=== PATIENT | female | born 1960 | race Caucasian/White ===

== ENCOUNTER 2017-10-07 17:11 | Emergency (ER) | payer MEDICARE, BC ==
[~2017-10-07] VITALS: Ht 157.5 cm; Wt 95.3 kg
[~2017-10-07 17:11] MED LIST: BENZTROPINE MES1 MG PO; COLESTID1 GM PO; FENOFIBRATE160 MG PO; FLUPHENAZINE25 MG/ML IM; HALOPERIDOL 5 MG5 MG PO; HYDROCODONE-APA1 TA1 PO; LEVOTHYROXIN0.075 MG PO; LISINOPRIL-HCT1 EAC2 PO; METFORMIN HCL500 MG PO; NAPROSYN500 MG PO; SIMVASTATIN40 MG PO; TESSALON PERLE100 MG PO; WELCHOL 625 MG625 M1 PO
[2017-10-07] MEDS ORDERED: ASPIRIN325 PO (17:26)
[2017-10-07] MEDS ORDERED: SEROQUEL 50 MG50 MG PO (17:26)
[2017-10-07 17:40] VITALS: BP 116/41
== END 2017-10-07 17:41 | disposition home or self-care (01) ==
LOC: M.ERS 17:11
DX: S61.012A Laceration without foreign body of left thumb without damage to nail, initial encounter (principal); E78.5 Hyperlipidemia, unspecified; I50.9 Heart failure, unspecified; G47.30 Sleep apnea, unspecified; F20.9 Schizophrenia, unspecified; F31.9 Bipolar disorder, unspecified; E66.01 Morbid (severe) obesity due to excess calories; Z68.38 Body mass index [BMI] 38.0-38.9, adult; Z90.49 Acquired absence of other specified parts of digestive tract; Z88.0 Allergy status to penicillin; W26.0XXA Contact with knife, initial encounter; Y93.89 Activity, other specified; Y92.89 Other specified places as the place of occurrence of the external cause; Y99.8 Other external cause status

== ENCOUNTER 2018-11-12 04:38 | Emergency (ER) | payer MEDICARE, BC ==
[~2018-11-12] VITALS: Ht 157.5 cm; Wt 124.8 kg
[~2018-11-12 04:38] MED LIST changes: +ASPIRIN325 PO; +SEROQUEL 50 MG50 MG PO
[2018-11-12] MEDS ORDERED: INVEGA (04:48)
[2018-11-12] MEDS ORDERED: VENTOLIN HFA 1818 GM INH (05:42)
[2018-11-12] MEDS ORDERED: ZPAK PO (05:42)
[2018-11-12 05:52] VITALS: BP 129/66
== END 2018-11-12 05:52 | disposition home or self-care (01) ==
LOC: M.ERS 04:38
DX: J18.9 Pneumonia, unspecified organism (principal); F20.9 Schizophrenia, unspecified; I50.9 Heart failure, unspecified; G47.30 Sleep apnea, unspecified; E66.01 Morbid (severe) obesity due to excess calories; E03.9 Hypothyroidism, unspecified; F32.9 Major depressive disorder, single episode, unspecified; E78.5 Hyperlipidemia, unspecified; Z88.0 Allergy status to penicillin; Z90.49 Acquired absence of other specified parts of digestive tract; Z68.43 Body mass index [BMI] 50.0-59.9, adult

== ENCOUNTER 2019-03-23 19:46 | Emergency (ER) | payer MEDICARE, BC ==
[~2019-03-23] VITALS: Ht 157.5 cm; Wt 127.0 kg
[~2019-03-23 19:46] MED LIST changes: +INVEGA; +VENTOLIN HFA 1818 GM INH; +ZPAK PO
[2019-03-23 21:11] LABS: ABSOLUTE BASOPHILS 0.1 thou/uL (0.0-0.2); ABSOLUTE EOSINOPHILS 0.1 thou/uL (0.0-0.7); ABSOLUTE LYMPHOCYTES 2.2 thou/uL (0.8-5.3); ABSOLUTE MONOCYTES 0.5 thou/uL (0.0-1.2); ABSOLUTE NEUTROPHILS 5.5 thou/uL (1.6-8.1); BASOPHILS 1.1 %; HEMATOCRIT 36.9 % (37.0-47.0); LYMPHOCYTES 26.6 %; MCH 24.9 pg (26.0-34.0); MCHC 32.4 g/dL (28.0-37.0); MCV 76.8 fL (80.0-100.0); MONOCYTES 5.6 %; MPV 8.3 fl. (7.2-11.1); NUCLEATED RBCS 0 /100WBC; PLATELET COUNT* 263 thou/uL (150-400); POLYS 65.7 %; RDW-CV 15.7 % (10.5-14.5); WBC 8.3 thou/uL (4.0-11.0)
[2019-03-23 21:20] LABS: PROTIME 10.1 Seconds (9.20-11.50)
[2019-03-23 21:20] LABS: BE 0.6 mmol/L (-2 to +3); PCO2 46.2 mmHg (35.0-45.0); PO2 65.7 mmHg (75.0-100.0); pH 7.372 (7.340-7.450)
[2019-03-23 21:21] LABS: ANION GAP 7 mmol/L (7-16); BUN 12 mg/dL (7-18); CALCIUM 8.1 mg/dL (8.5-10.1); CHLORIDE 101 mmol/L (98-107); CO2 29 mmol/L (21-32); CREATININE 0.9 mg/dL (0.6-1.3); GLUCOSE 262 mg/dL (70-99); POTASSIUM 4.1 mmol/L (3.5-5.1); SODIUM 137 mmol/L (136-145)
[2019-03-23 21:34] LABS: ALKALINE PHOSPHATASE 87 U/L (46-116); NT-PRO BRAIN NAT PEPTIDE 166 pg/mL (<300); SGOT 20 U/L (15-37); SGPT 33 U/L (30-65); TOTAL BILIRUBIN 0.2 mg/dL (<0.1-1.0); TOTAL PROTEIN 6.9 g/dL (6.4-8.2); TROPONIN-I LEVEL <0.06 ng/mL (<0.06)
[2019-03-23 23:20] VITALS: BP 120/80
--- NOTE | 2019-03-24 10:27 | EKG ---
[place] [address] ELECTROCARDIOGRAM REPORT Name: NESTOR TRACY Room: [facility]#: [id number] Admission: 03/23/19 Attend Phys: Discharge: 03/23/19 Date of : 56 Report #: [id number] THIS REPORT FOR: //name// ED Test Date: 2019-03-23 Test Time: 20:02:12 Pat Name: NESTOR TRACY Department: Room: Gender: F Signal Supervisor: JITENDRA : 1960 Requested By: Connie Yu Order Number: [id number] MD: Dajuan Tom Measurements Intervals [place] Rate: 102 P: 65 [place]: 146 QRS: 22 QRSD: 92 T: 55 QT: 359 QTc: 468 Interpretive Statements Sinus tachycardia Compared to ECG 09/07/2014 21:24:52 Sinus rhythm no longer present Electronically Signed On 03-24-2019 10:27:13 CDT by Dajuan Tom [email or web address] <ELECTRONICALLY SIGNED> By: Dajuan Tom MD, [facility] 03/24/19 1027 01 01 Dajuan Tom MD, FACC /EPI
== END 2019-03-23 23:20 | disposition home or self-care (01) ==
LOC: M.ERS 19:46
PROVIDERS: Emergency Medicine
DX: R06.00 Dyspnea, unspecified (principal); F20.9 Schizophrenia, unspecified; I50.9 Heart failure, unspecified; G47.30 Sleep apnea, unspecified; F31.9 Bipolar disorder, unspecified; E03.9 Hypothyroidism, unspecified; Z90.49 Acquired absence of other specified parts of digestive tract; Z88.0 Allergy status to penicillin

== ENCOUNTER 2019-03-25 23:05 | Emergency (ER) | payer MEDICARE, BC ==
[~2019-03-25] VITALS: Ht 157.5 cm; Wt 127.0 kg
[2019-03-25 23:31] VITALS: BP 160/75
[2019-03-25] MEDS ORDERED: PREDNISONE 20 M20 M1 PO (23:41)
== END 2019-03-25 23:56 ==
LOC: M.ERS 23:05
DX: R06.00 Dyspnea, unspecified (principal); E03.9 Hypothyroidism, unspecified; E78.5 Hyperlipidemia, unspecified; F20.9 Schizophrenia, unspecified; F32.9 Major depressive disorder, single episode, unspecified; I50.9 Heart failure, unspecified; E66.01 Morbid (severe) obesity due to excess calories; G47.30 Sleep apnea, unspecified; Z90.49 Acquired absence of other specified parts of digestive tract; Z68.43 Body mass index [BMI] 50.0-59.9, adult; Z88.0 Allergy status to penicillin

== ENCOUNTER 2019-03-26 17:21 | Emergency (ER) | payer MEDICARE, BC ==
[~2019-03-26] VITALS: Ht 157.5 cm; Wt 141.6 kg
[~2019-03-26 17:21] MED LIST changes: +PREDNISONE 20 M20 M1 PO
[2019-03-26 18:11] LABS: ABSOLUTE BASOPHILS 0.1 thou/uL (0.0-0.2); ABSOLUTE LYMPHOCYTES 2.6 thou/uL (0.8-5.3); ABSOLUTE MONOCYTES 0.7 thou/uL (0.0-1.2); ABSOLUTE NEUTROPHILS 6.5 thou/uL (1.6-8.1); EOSINOPHILS 0.2 %; HEMATOCRIT 37.1 % (37.0-47.0); HEMOGLOBIN 11.9 gm/dL (12.0-15.0); LYMPHOCYTES 26.4 %; MCH 24.4 pg (26.0-34.0); MCV 76.5 fL (80.0-100.0); MONOCYTES 6.6 %; MPV 8.1 fl. (7.2-11.1); NUCLEATED RBCS 0 /100WBC; PLATELET COUNT* 270 thou/uL (150-400); POLYS 65.8 %; RBC 4.85 mil/uL (4.20-5.00); RDW-CV 15.7 % (10.5-14.5); WBC 9.8 thou/uL (4.0-11.0)
[2019-03-26 18:19] LABS: ANION GAP 10 mmol/L (7-16); BUN 16 mg/dL (7-18); CALCIUM 8.3 mg/dL (8.5-10.1); CHLORIDE 102 mmol/L (98-107); CO2 29 mmol/L (21-32); CREATININE 0.8 mg/dL (0.6-1.3); GLUCOSE 253 mg/dL (70-99); POTASSIUM 3.8 mmol/L (3.5-5.1); SODIUM 141 mmol/L (136-145)
[2019-03-26 18:29] LABS: ALKALINE PHOSPHATASE 87 U/L (46-116); SGOT 19 U/L (15-37); SGPT 42 U/L (30-65); TOTAL BILIRUBIN 0.2 mg/dL (<0.1-1.0); TOTAL PROTEIN 6.8 g/dL (6.4-8.2); TROPONIN-I LEVEL <0.06 ng/mL (<0.06)
[2019-03-26 19:02] LABS: BE 1.5 mmol/L (-2 to +3); PCO2 VENOUS 53.5 mmHg (41.0-51.0); PO2 VENOUS 35.2 mmHg (35.0-45.0)
[2019-03-26 19:20] VITALS: BP 164/98
--- NOTE | 2019-03-29 16:11 | EKG ---
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
== END 2019-03-26 19:21 | disposition home or self-care (01) ==
LOC: M.ERS 17:21
PROVIDERS: Nurse Practitioner
DX: R06.02 Shortness of breath (principal); R53.83 Other fatigue; F20.9 Schizophrenia, unspecified; G47.30 Sleep apnea, unspecified; I50.9 Heart failure, unspecified; E66.01 Morbid (severe) obesity due to excess calories; F31.9 Bipolar disorder, unspecified; E03.9 Hypothyroidism, unspecified; E78.5 Hyperlipidemia, unspecified; Z88.0 Allergy status to penicillin; Z68.43 Body mass index [BMI] 50.0-59.9, adult

== ENCOUNTER 2019-03-29 14:19 | Emergency (ER) | payer MEDICARE, BC ==
[~2019-03-29] VITALS: Ht 160 cm; Wt 136.1 kg
[2019-03-29 14:56] LABS: HEMATOCRIT 38.3 % (37.0-47.0); HEMOGLOBIN 12.3 gm/dL (12.0-15.0); MCH 24.7 pg (26.0-34.0); MCHC 32.2 g/dL (28.0-37.0); MCV 76.7 fL (80.0-100.0); MPV 8.7 fl. (7.2-11.1); NUCLEATED RBCS 0 /100WBC; PLATELET COUNT* 282 thou/uL (150-400); RDW-CV 15.8 % (10.5-14.5); WBC 7.5 thou/uL (4.0-11.0)
[2019-03-29 15:04] LABS: ANION GAP 9 mmol/L (7-16); BUN 14 mg/dL (7-18); CALCIUM 8.2 mg/dL (8.5-10.1); CHLORIDE 100 mmol/L (98-107); CO2 28 mmol/L (21-32); CREATININE 0.9 mg/dL (0.6-1.3); GLUCOSE 310 mg/dL (70-99); POTASSIUM 3.7 mmol/L (3.5-5.1); SODIUM 137 mmol/L (136-145)
[2019-03-29 15:08] LABS: APTT 21.6 Seconds (25.0-31.3)
[2019-03-29 15:14] LABS: ALBUMIN 3.1 g/dL (3.4-5.0); ALKALINE PHOSPHATASE 93 U/L (46-116); SGOT 19 U/L (15-37); SGPT 50 U/L (30-65); TOTAL BILIRUBIN 0.2 mg/dL (<0.1-1.0); TOTAL PROTEIN 6.8 g/dL (6.4-8.2); TROPONIN-I LEVEL <0.06 ng/mL (<0.06)
[2019-03-29 15:15] LABS: BE 2.7 mmol/L (-2 to +3); PCO2 VENOUS 53.2 mmHg (41.0-51.0); PO2 VENOUS 60.7 mmHg (35.0-45.0)
[2019-03-29 15:30] LABS: ABSOLUTE EOSINOPHILS 0.1 thou/uL (0.0-0.7); ABSOLUTE LYMPHOCYTES 1.5 thou/uL (0.8-5.3); ABSOLUTE MONOCYTES 0.3 thou/uL (0.0-1.2); ABSOLUTE NEUTROPHILS 5.6 thou/uL (1.6-8.1); PLATELET ESTIMATE ADEQUATE
[2019-03-29 15:31] LABS: ANISOCYTOSIS 1+; HYPOCHROMASIA 1+
[2019-03-29] MEDS ORDERED: PREDNISONE 10 M10 MG PO (15:52)
[2019-03-29] MEDS ORDERED: VENTOLIN HFA 1818 GM INH (15:52)
[2019-03-29] MEDS ORDERED: LEVAQUIN 500 M500 M2 PO (15:52)
[2019-03-29 16:12] VITALS: BP 138/82
--- NOTE | 2019-03-29 16:29 | EKG ---
[place] [address] ELECTROCARDIOGRAM REPORT Name: NESTOR TRACY Room: 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: WILL : 1960 Requested By: Angela Dejesus Order Number: [id number] MD: James Castro Measurements Intervals [place] Rate: 107 P: 67 [place]: 150 QRS: -33 QRSD: 86 T: 60 QT: 348 QTc: 465 Interpretive Statements Sinus tachycardia Left axis deviation Abnormal R-wave progression, late transition Compared to ECG 03/23/2019 20:02:12 Left-axis deviation now present Electronically Signed On 03-29-2019 16:29:02 CDT by James Castro [email or web address] <ELECTRONICALLY SIGNED> By: James Castro MD, [facility] 03/29/19 1629 1428 142 James Castro MD, [facility] /EPI
== END 2019-03-29 16:13 | disposition home or self-care (01) ==
LOC: M.ERS 14:19
PROVIDERS: Nurse Practitioner Family
DX: J18.9 Pneumonia, unspecified organism (principal); E11.65 Type 2 diabetes mellitus with hyperglycemia; G47.30 Sleep apnea, unspecified; F20.9 Schizophrenia, unspecified; E03.9 Hypothyroidism, unspecified; E78.5 Hyperlipidemia, unspecified; F31.9 Bipolar disorder, unspecified; I50.9 Heart failure, unspecified; E66.01 Morbid (severe) obesity due to excess calories; Z68.43 Body mass index [BMI] 50.0-59.9, adult; Z88.0 Allergy status to penicillin; Z90.49 Acquired absence of other specified parts of digestive tract

== ENCOUNTER 2019-04-15 22:27 | Emergency (ER) | payer MEDICARE, BC ==
[~2019-04-15] VITALS: Ht 157.5 cm; Wt 134.3 kg
[~2019-04-15 22:27] MED LIST changes: +LEVAQUIN 500 M500 M2 PO; +PREDNISONE 10 M10 MG PO
[2019-04-16 00:09] LABS: HEMATOCRIT 39.8 % (37.0-47.0); HEMOGLOBIN 12.9 gm/dL (12.0-15.0); MCH 24.5 pg (26.0-34.0); MCHC 32.4 g/dL (28.0-37.0); MCV 75.8 fL (80.0-100.0); MPV 8.3 fl. (7.2-11.1); RBC 5.24 mil/uL (4.20-5.00); RDW-CV 16.4 % (10.5-14.5); WBC 6.3 thou/uL (4.0-11.0)
[2019-04-16 00:17] LABS: CALCIUM 9.3 mg/dL (8.5-10.1); CREATININE 0.8 mg/dL (0.6-1.3)
[2019-04-16 00:18] LABS: PROTIME 9.8 Seconds (9.20-11.50)
[2019-04-16 00:21] LABS: ALBUMIN 3.2 g/dL (3.4-5.0); TOTAL BILIRUBIN 0.2 mg/dL (<0.1-1.0); TOTAL PROTEIN 6.9 g/dL (6.4-8.2)
[2019-04-16 00:39] VITALS: BP 137/89
[2019-04-17] MEDS ORDERED: HALDOL5 MG/1 ML IM (14:19)
== END 2019-04-16 00:41 | disposition home or self-care (01) ==
LOC: M.ERS 22:27
PROVIDERS: Personal Emergency Response Attendant
DX: K13.79 Other lesions of oral mucosa (principal); G47.30 Sleep apnea, unspecified; F20.9 Schizophrenia, unspecified; E78.5 Hyperlipidemia, unspecified; F32.9 Major depressive disorder, single episode, unspecified; F31.9 Bipolar disorder, unspecified; E03.9 Hypothyroidism, unspecified; I50.9 Heart failure, unspecified; E66.01 Morbid (severe) obesity due to excess calories; Z88.0 Allergy status to penicillin; Z90.49 Acquired absence of other specified parts of digestive tract; Z68.43 Body mass index [BMI] 50.0-59.9, adult

== ENCOUNTER 2019-04-17 13:51 | Emergency (ER) | payer MEDICARE, BC ==
[~2019-04-17] VITALS: Ht 157.5 cm; Wt 132.0 kg
[2019-04-17] MEDS ORDERED: HALDOL5 MG/1 ML IM (14:19)
[2019-04-17 14:36] VITALS: BP 155/89
== END 2019-04-17 15:42 | disposition home or self-care (01) ==
LOC: M.ERS 13:51
DX: R11.0 Nausea (principal); G47.30 Sleep apnea, unspecified; E66.01 Morbid (severe) obesity due to excess calories; E78.5 Hyperlipidemia, unspecified; F31.9 Bipolar disorder, unspecified; E03.9 Hypothyroidism, unspecified; I50.9 Heart failure, unspecified; F20.9 Schizophrenia, unspecified; Z88.0 Allergy status to penicillin; Z68.43 Body mass index [BMI] 50.0-59.9, adult; Z90.49 Acquired absence of other specified parts of digestive tract

== ENCOUNTER 2019-04-17 20:00 | Emergency (ER) | payer MEDICARE, BC ==
[~2019-04-17] VITALS: Ht 162.6 cm; Wt 131.5 kg
[~2019-04-17 20:00] MED LIST changes: +HALDOL5 MG/1 ML IM
[2019-04-17 22:02] VITALS: BP 138/88
== END 2019-04-17 22:03 | disposition home or self-care (01) ==
LOC: M.ERS 20:00
DX: F20.0 Paranoid schizophrenia (principal); E03.9 Hypothyroidism, unspecified; E78.5 Hyperlipidemia, unspecified; E66.01 Morbid (severe) obesity due to excess calories; G47.30 Sleep apnea, unspecified; F31.9 Bipolar disorder, unspecified; Z68.42 Body mass index [BMI] 45.0-49.9, adult; Z90.49 Acquired absence of other specified parts of digestive tract; Z88.0 Allergy status to penicillin

== ENCOUNTER 2021-04-11 19:22 | Emergency (ER) | payer MEDICARE, BC ==
[~2021-04-11] VITALS: Ht 160 cm; Wt 113.4 kg
[2021-04-11] MEDS ORDERED: JANUVIA50 MG (19:37)
[2021-04-11] MEDS ORDERED: SYNTHROID75 MC1 (19:37)
[2021-04-11 19:43] LABS: URINE BILIRUBIN NEGATIVE (Negative); URINE BLOOD TRACE (Negative); URINE CLARITY CLEAR; URINE COLOR YELLOW; URINE GLUCOSE-RANDOM NEGATIVE (Negative); URINE KETONES NEGATIVE (Negative); URINE LEUKOCYTES-REFLEX NEGATIVE (Negative); URINE NITRITE-REFLEX NEGATIVE (Negative); URINE PROTEIN NEGATIVE (Negative); URINE UROBILINOGEN 0.2 E.U./dl (0.2-1.0)
[2021-04-11 19:57] LABS: AMP/METHAMP Negative (Negative); BARBITURATES Negative (Negative); BENZODIAZEPINES Negative (Negative); COCAINE Negative (Negative); METHADONE Negative (Negative); OPIATES Negative (Negative); PCP Negative (Negative); THC Negative (Negative)
[2021-04-11 20:01] LABS: ABSOLUTE BASOPHILS 0.1 thou/uL (0.0-0.2); ABSOLUTE EOSINOPHILS 0.1 thou/uL (0.0-0.7); ABSOLUTE LYMPHOCYTES 2.2 thou/uL (0.8-5.3); ABSOLUTE MONOCYTES 0.4 thou/uL (0.0-1.2); BASOPHILS 0.8 %; EOSINOPHILS 0.7 %; HEMATOCRIT 40.3 % (37.0-47.0); HEMOGLOBIN 13.5 gm/dL (12.0-15.0); LYMPHOCYTES 23.1 %; MCH 26.7 pg (26.0-34.0); MCHC 33.6 g/dL (28.0-37.0); MCV 79.6 fL (80.0-100.0); MONOCYTES 3.7 %; MPV 8.3 fl. (7.2-11.1); NUCLEATED RBCS 0 /100WBC; PLATELET COUNT* 278 thou/uL (150-400); POLYS 71.7 %; RBC 5.07 mil/uL (4.20-5.00); RDW-CV 14.3 % (10.5-14.5); WBC 9.7 thou/uL (4.0-11.0)
[2021-04-11 20:08] LABS: CALCIUM 8.7 mg/dL (8.5-10.1); CREATININE 0.9 mg/dL (0.6-1.3); POTASSIUM 3.9 mmol/L (3.5-5.1)
[2021-04-11 20:13] LABS: ALBUMIN 3.7 g/dL (3.4-5.0); TOTAL BILIRUBIN 0.2 mg/dL (<0.1-1.0); TOTAL PROTEIN 8.3 g/dL (6.4-8.2)
[2021-04-11 20:17] LABS: ACETAMINOPHEN < 2 ug/mL (10-30); ALCOHOL < 10 mg/dL (<10); SALICYLATE < 2.8 mg/dL (2.8-20.0)
[2021-04-12 09:44] VITALS: BP 142/80
== END 2021-04-12 09:45 | disposition still patient (30) ==
LOC: M.ERS 19:22
PROVIDERS: Emergency Medicine
DX: F32.9 Major depressive disorder, single episode, unspecified (principal); Z20.822 Contact with and (suspected) exposure to COVID-19; F20.9 Schizophrenia, unspecified; E66.9 Obesity, unspecified; Z68.41 Body mass index [BMI] 40.0-44.9, adult; E03.9 Hypothyroidism, unspecified; E78.5 Hyperlipidemia, unspecified; I50.9 Heart failure, unspecified; Z85.72 Personal history of non-Hodgkin lymphomas; Z90.49 Acquired absence of other specified parts of digestive tract; Z79.899 Other long term (current) drug therapy; Z88.0 Allergy status to penicillin